=== PATIENT | male | born 2000 | race Caucasian/White ===

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

== ENCOUNTER 2024-09-17 03:07 | Emergency (ER) | payer SELFPAY ==
--- OUTSIDE RECORDS SUMMARY | 2024-09-17 03:11 | XMS REPORT | Continuity of Care Document ---
Author Name Unknown Address [address] [phone] [facility] Address [address] [phone] Care Team Providers Care Outreach Analyst Name Role Phone Tc Gil Primary Care Physician [phone] SANTIAGO THOMPSON Attending Clinician Unavailable Santiago Thompson MD Attending Clinician [phone] Problems Condition Name Condition Details Condition Category Status Onset Date Resolution Date Last Treatment Date Treating Clinician Comments Source Acute bronchioli tis due to respirator y syncytial virus (RSV) Acute bronchioli tis due to respirator y syncytial virus (RSV) Disease Active 08-17 00:00: 00 [facility] Allergies, Adverse Reactions, Alerts Allergy Name Allergy Type Status Severity Reaction(s) Onset Date Inactive Date Treating Clinician Comments Source NO KNOWN ALLERGIE S Drug Class Active [facility] Social History Social Habit Start Date Stop Date Quantity Comments Source Exposure to SARS-CoV-2 (event) Not sure [facility] Sex Assigned At 2000 00:00:00 2000 00:00:00 [facility] Smoking Status Start Date Stop Date Source Unknown if ever smoked [facility] Medications Ordered Medication Name Filled Medication Name Start Date Stop Date Current Medication? Ordering Clinician Indication Dosage Frequency Signature (SIG) Comments Components Source NaCl 0.9% (NS) bolus infusion 1,000 mL 2020-05 20:15: 00 04-10 20:16 :00 No 1000mL at 999 mL/hr, 1,000 mL, IV Infusion, ONCE, 1 dose, On Tue04/10/21 at 1415, MICHAEL [facility] Vital Signs Vital Name Observation Time Observation Value Comments S ource Systolic blood pressure 2021-04-10 19:07:00 140 mm[Hg] [facility] Diastolic blood pressure 2021-04-10 19:07:00 86 mm[Hg] [facility] Heart rate 2021-04-10 19:07:00 85 /min [facility] Body temperature 2021-04-10 19:07:00 36.56 Sujata [facility] Respiratory rate 2021-04-10 19:07:00 20 /min [facility] Body height 2021-04-10 19:07:00 172.7 cm [facility] Body weight 2021-04-10 19:07:00 58.968 kg [facility] BMI 2021-04-10 19:07:00 19.77 kg/m2 [facility] Oxygen saturation in Arterial blood by Pulse oximetry 2021-04-10 19:07:00 100 /min [facility] BP Systolic 2024-03-06 15:09:00 131 mm[Hg] Step hen Sukh Cortes BP Diastolic 2024-03-06 15:09:00 88 mm[Hg] Juni Cortes Weight Measured 2024-03-06 15:09:00 116.80 pounds Sam Cortes Height Measured 2024-03-06 15:09:00 68.00 inches Sam Cortes Body Temperature 2024-03-06 15:09:00 98.30 degrees Sam Cortes Heart Rate 2024-03-06 15:09:00 84.00 /min Lety en Sukh Cortes Respiratory Rate 2024-03-06 15:09:00 18.00 /min Sam Cortes Procedures Procedure Date / Time Performed Performing Clinicia n Source COMP. METABOLIC PANEL ([id number]) 2021-04-10 19:20:00 Santiago Thompson [facility] ETHANOL 2021-04-10 19:20:00 Santiago Thompson [facility] CBC WITH DIFF 2021-04-10 19:20:00 Santiago Thompson [facility] Encounters Start Date/Time End Date/Time Encounter Type Admission Type Attending [facility] Care Department Encounter ID Source 2024-03-15 17:30:06 2024-03-15 17:30:06 Outpatient [facility] [id number] Sam Cortes 2024-03-06 15:01:10 2024-03-06 15:01:10 Outpatient [facility] [id number] Sam Cortes 2024-03-06 00:00:00 2024-03-06 00:00:00 Outpatient Visit [facility] [id number] Sam Cortes 2021-04-10 13:09:00 2021-04-10 14:55:00 Emergency X SANTIAGO THOMPSON [facility] ERT [id number] [facility] 2021-04-10 13:09:00 2021-04-10 14:55:00 Emergency Santiago Thompson [facility] [id number] [facility] Results Test Description Test Time Test Comments Results Result Co mments Source HEPATITIS A [id number] 11:01:04* Test Item Value Reference Range Interpretation Comme nts HEPATITIS A IgM (test code = 2728) NON-REACTIVE NON-REACTIVE UNLESS OTHERW ISE INDICATED, ALL TESTING PERFORMED AT [facility] 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 [place] NUMBER [id number] [facility] [place]. [id number] HEPATITIS PANEL, [id number] 11:01:04* Test Item Value Reference Range Interpretation Comments HEPATITIS A TOTAL AB (test code = 2725) REACTIVE NON-REACTIVE A HEPATITIS B SURF AG (test code = 2739) NON-REACTIVE NON-REACTIVE HEP B CORE TOTAL AB (test code = 2729) NON-REACTIVE NON-REACTIVE HEPATITIS B SURFACE AB (test code = 2737) NON-REACTIVE NON-REACTIVE HEPATITIS C ANTIBODY (test code = 4675) NON-REACTIVE NON-REACTIVE INTERPRETATION HEPATITIS A: (test code = 2552) (NOTE) Hepatitis A sero logy consistent with past exposure or previousvaccination to hepatitis A virus. No evidence of current acutehepatitis A infection. INTERPRETATION HEPATITIS B: (test code = 05380) (NOTE) Hepatitis B sero logy shows no evidence of past exposure to orcurrent infection with hepatitis B virus. No evidence of hepatitis Bimmunization is identified. INTERPRETATION HEPATITIS C: (test code = 25610) (NOTE) Hepatitis C sero logy shows no evidence of exposure to hepatitisC virus at this time. It can take up to 12 months after exposure tothe hepatitis C virus for antibodies to become detectable in the blood in certain patients. HIV 1/2 4TH GEN, RFLX [id number] 11:01:04* Test Item Value Reference Range Interpretation Comme nts HIV 1/2 4TH GEN, RFLX CONF ( test code = 3514) NON-REACTIVE NON-REACTIVE RPR REFLEX TO T. PALLIDUM - [id number] 08:58:46* Test Item Value Reference Range Interpretation Comme nts RPR (test code = 11361) NON-REACTIVE NON-REACTIVE RPR TITER (test code = 3500) NOT INDIC. TITER NOT INDIC. [id number] 19:57:35* Test Item Value Reference Range Interpretation Comme nts ALCOHOL (test code = 6872135654) <10 mg/dL EDU (test code = EDU) <10 [id number] Toxic>100 Depression of SLAB INSTALLER>400 Fatalities Reported [facility]. METABOLIC PANEL ([id number])2021-04-10 19:45:17* Test Item Value Reference Range Interpretation Comme nts NA (test code = 9342837907) 135 mmol/L 135-145 K (test code = 3809783134) 3.9 mmol/L 3.5-5.0 CL (test code = 9555640386) 98 mmol/L 98-108 CO2 TOTAL (test code = 1325837446) 25 mmol/L 23-31 AGAP (test code = 9072162952) 2-16 BUN (test code = 0726235449) 19 mg/dL 7-23 GLUCOSE (test code = 5901950871) 77 mg/dL 70-110 CREATININE (test code = 9168872579) 1.09 mg/dL 0.60-1.25 TOTAL BILI (test code = 3541552367) 1.5 mg/dL 0.1-1.1 H CALCIUM (test code = 7608439684) 10.3 mg/dL 8.6-10.6 T PROTEIN (test code = 4301562526) 7.7 g/dL 6.3-8.2 ALBUMIN (test code = 3775728326) 5.1 g/dL 3.5-5.0 H ALK PHOS (test code = 4541077082) 77 U/L 34-122 ALTv (test code = 1742-6) 25 U/L 5-50 AST(SGOT) (test code = 5494777325) 46 U/L 13-40 H eGFR (test code = 6041799859) mL/min/1.73m2 EDU (test code = EDU) Association of Glomerular Filtration Rate (GFR) and Staging of Kidney Disease* + --+ --+ ------+| GFR (mL/min/1.73 m2) ?| With Kidney Damage ?| ?Without Kidney Damage+ --------+ --------+ +| ?>90 ?| ?Stage one ?| ? Normal ?+ ---+ ---+ -------+| ?60-89 ?| ?Stage two ?| ? Decreased GFR ? + --+ --+ ------+| ?30-59 ?| ?Stage three ?| ? Stage three ? + --+ --+ ------+| ?15-29 ?| ?Stage four ? | ? Stage four ?+ ---+ ---+ -------+| ?<15 (or dialysis) ? ?| ?Stage five ? | ? Stage five ?+ ---+ ---+ -------+ *Each stage assumes the associated GFR level has been in effect for at least three months. ?Stages 1 to 5, with or without kidney disease, indicate chronic kidney disease. Notes: Determination of stages one and two (with eGFR >59mL/min/1.73 m2) requires estimation of kidney damage for at least three months as defined by structural or functional abnormalities of the kidney, manifested by either:Pathological abnormalities or Markers of kidney damage (including abnormalities in the composition of the blood or urine or abnormalities in imaging tests). Lab Interpretation (test code = 37300-1) Abnormal [facility] WITH [id number] 19:31:56* Test Item Value Reference Range Interpretation Comme nts WBC (test code = 6690-2) See_Comment H [Automated message] The system which generated this result transmitted reference range: 4.20 - 10.70 10*3/?L. The reference range was not used to interpret this result as normal/abnormal. RBC (test code = 789-8) See_Comment [Automated message] The system which generated this result transmitted reference range: 4.26 - 5.52 10*6/?L. The reference range was not used to interpret this result as normal/abnormal. HGB (test code = 718-7) 15.3 g/dL 12.2-16.4 HCT (test code = 4544-3) 43.9 % 38.4-49.3 MCV (test code = 787-2) 87.3 fL 81.7-95.6 MCH (test code = 785-6) 30.4 pg 26.1-32.7 MCHC (test code = 786-4) 34.9 g/dL 31.2-35.0 RDW-SD (test code = 92402-9) 38.5 fL 38.5-51.6 RDW-CV (test code = 788-0) 12.0 % 12.1-15.4 L PLT (test code = 777-3) See_Comment [Automated message] The system which generated this result transmitted reference range: 150 - 328 10*3/?L. The reference range was not used to interpret this result as normal/abnormal. MPV (test code = 31915-9) 10.0 fL 9.8-13.0 NRBC/100 WBC (test code = 2859786889) See_Comment [Automated message] The system which generated this result transmitted reference range: 0.0 - 10.0 /100 WBCs. The reference range was not used to interpret this result as normal/abnormal. NRBC x10^3 (test code = 2370259379) <0.01 See_Comment [Automated message] The system which generated this result transmitted reference range: 10*3/?L. The reference range was not used to interpret this result as normal/abnormal. GRAN MAT (NEUT) % (test code = 770-8) 82.9 % IMM GRAN % (test code = 5674802552) 0.60 % LYMPH % (test code = 736-9) 9.9 % MONO % (test code = 5905-5) 6.2 % EOS % (test code = 713-8) 0.0 % BASO % (test code = 706-2) 0.4 % GRAN MAT x10^3(ANC) (test code = 4936546294) 10.24 10*3/uL 1.99-6.95 H IMM GRAN x10^3 (test code = 2141092847) 0.07 10*3/uL 0.00-0.06 H LYMPH x10^3 (test code = 731-0) 1.22 10*3/uL 1.09-3.23 MONO x10^3 (test code = 742-7) 0.77 10*3/uL 0.36-1.02 EOS x10^3 (test code = 711-2) <0.03 0.06-0.53 L BASO x10^3 (test code = 704-7) 0.05 10*3/uL 0.01-0.09 Lab Interpretation (test code = 55534-4) Abnormal [facility] Notes Date/Time Note Provider Source Sam Salas [facility]"
[2024-09-17] MEDS ORDERED: LEVALBUTEROL 0.63 MG/3 ML NEB ONE (03:41)
[2024-09-17] MEDS ORDERED: NA CHLORIDE 0.9% 1,000 ML ONE (03:42)
[2024-09-17] MEDS ORDERED: ONDANSETRON 4 MG/2 ML VIAL ONE (03:42)
[2024-09-17 04:08] LABS: Absolute Eosinophils 0.1 K/uL (0-0.5); Absolute Lymphocytes (CBC) 2.1 K/uL (0.7-4.9); Absolute Monocytes 0.5 K/uL (0.1-1.3); Basophils % 0.8 % (0-1.3); Hematocrit 39.9 % (39.6-49.0); Hemoglobin 14.4 g/dL (13.6-17.9); Lymphocytes % 36.3 % (15.3-44.8); MCH 30.9 pg (27.0-35.0); MCHC 36.1 g/dL (32.0-36.0); MCV 85.5 fL (80-100); MPV 8.6 fL (7.6-11.3); Monocytes % 9.2 % (3.3-12.3); Neutrophils % 52.7 % (41.7-73.7); Nucleated Red Blood Cells % 0.1 % (0-0); Platelets 211 thou/uL (152-406); RBC Red Blood Cell Count 4.66 M/uL (4.33-5.43); Red Cell Distribution Width 13.1 % (12.1-15.2)
[2024-09-17 04:21] LABS: Albumin 3.9 g/dL (3.4-5.0); Albumin/Globulin Ratio 1.1 (1.1-1.8); Anion Gap 8.8 mEq/L (5.0-15.0); Bilirubin Direct 0.2 mg/dL (0-0.2); Bilirubin Indirect, Calculated 0.4 mg/dL (0.2-0.8); Bilirubin Total 0.6 mg/dL (0.2-1.0); Globulin 3.5 g/dL (2.3-3.5); Potassium 3.8 mEq/L (3.5-5.1); Protein, Total 7.4 g/dL (6.4-8.2); Troponin High Sensitivity 12.5 pg/mL (<58.9)
--- NOTE | 2024-09-17 04:53 | EDPHYS ---
Physician Documentation [facility] Name: Carter Forbes Age: 24 yrs Sex: Male : 2000 Arrival Date: 09/17/2024 Time: 03:07 Bed 8 Private MD: ED Physician Deondre Novak HPI: 09/17 04:44 This 24 yrs old Male presents to ER via Ambulatory with complaints of Shortness Of rt Breath, Dizziness. 04:44 Patient presents to the ED with 2 weeks of an intermittent chest pain, shortness of rt breath, dizziness. Patient denies other acute complaints at this time, symptoms are moderate in severity, no other aggravating alleviating factors.. Historical: - Allergies: 03:32 No Known Allergies; br2 - Home Meds: 03:32 None [Active]; br2 - PSHx: 03:32 None; br2 - Immunization history:: Adult Immunizations up to date. - Infectious Disease History:: Denies. - Social history:: Smoking status: Reported history of juuling and/or vaping. Patient uses street drugs, marijuana, Patient/guardian denies using alcohol. - Family history:: not pertinent. ROS: 04:44 Constitutional: Negative for fever, chills, and weight loss, MS/Extremity: Negative for rt injury and deformity, 04:44 Cardiovascular: Positive for chest pain, Negative for edema, 04:44 Respiratory: Positive for shortness of breath, Negative for cough, 04:44 Abdomen/GI: Positive for nausea, Negative for abdominal pain, 04:44 Neuro: Positive for dizziness, Negative for loss of consciousness, Exam: 04:44 Constitutional: This is a well developed, well nourished patient who is awake, alert, rt and in no acute distress. Head/Face: Normocephalic, atraumatic. Chest/axilla: Normal chest wall appearance and motion. Nontender with no deformity. No lesions are appreciated. Cardiovascular: Regular rate and rhythm with a normal S1 and S2. No gallops, murmurs, or rubs. Normal PMI, no JVD. No pulse deficits. Respiratory: Lungs have equal breath sounds bilaterally, clear to auscultation and percussion. No rales, rhonchi or wheezes noted. No increased work of breathing, no retractions or nasal flaring. Abdomen/GI: Soft, non-tender, with normal bowel sounds. No distension or tympany. No guarding or rebound. No evidence of tenderness throughout. MS/ Extremity: Pulses equal, no cyanosis. Neurovascular intact. Full, normal range of motion. Neuro: Awake and alert, GCS 15, oriented to person, place, time, and situation. Cranial nerves II-XII grossly intact. Motor strength 5/5 in all extremities. Sensory grossly intact. Cerebellar exam normal. Normal gait. 04:44 ECG was reviewed by the Attending Physician. Vital Signs: 03:29 BP 143 / 103; Pulse 72; Resp 15; Temp 97.2; Pulse Ox 96% ; Weight 54.43 kg; Height 5 br2 ft. 6 in. ; Pain 4/10; 03:30 BP 136 / 102; Pulse 69; Resp 17; Pulse Ox 98% ; al5 04:00 BP 141 / 101; Pulse 64; Resp 20; Pulse Ox 98% ; al5 04:30 BP 130 / 76; Pulse 60; Resp 20; Pulse Ox 98% ; al5 05:00 BP 129 / 75; Pulse 66; Resp 18; Pulse Ox 98% ; al5 03:29 Body Mass Index 19.37 (54.43 kg, 167.64 cm) br2 03:29 Pain Scale: Adult br2 MDM: 03:29 Medical Screening Exam initiated rt 04:53 Differential diagnosis: Pneumonia, pneumothorax, dysrhythmia, anemia, electrolyte rt disturbance, nonspecific chest pain. Data reviewed: vital signs, nurses notes, lab test result(s), EKG, radiologic studies. I considered the following discharge prescriptions or medication management in the emergency department Medications were administered in the Emergency Department. See MAR. Independent interpretation of the following test(s) in the Emergency Department X-Ray: My interpretation is No consolidation, pneumothorax seen on interpretation of x-ray images. Test considered but Not performed: CT: Low suspicion for PE, PE RC negative, CT angiogram is not indicated. Counseling: I had a detailed discussion with the patient and/or guardian regarding the historical points, exam findings, and any diagnostic results supporting the discharge/admit diagnosis, lab results, radiology results, the need for outpatient follow up. 09/17 03:34 Order name: Basic Metabolic Panel; Complete Time: 04:29 rt 09/17 03:34 Order name: CBC with Diff; Complete Time: 04:29 rt 09/17 03:34 Order name: LFT's; Complete Time: 04:29 rt 09/17 03:34 Order name: NT PRO-BNP; Complete Time: 04:29 rt 09/17 03:34 Order name: Troponin HS; Complete Time: 04:29 rt 09/17 03:34 Order name: XRAY Chest (1 view) rt 09/17 03:34 Order name: EKG; Complete Time: 03:36 rt 09/17 03:34 Order name: Cardiac monitoring; Complete Time: 03:51 rt 09/17 03:34 Order name: EKG - Nurse/Tech; Complete Time: 03:51 rt 09/17 03:34 Order name: IV Saline Lock; Complete Time: 03:49 rt 09/17 03:34 Order name: Labs collected and sent; Complete Time: 03:49 rt 09/17 03:34 Order name: O2 Per Protocol; Complete Time: 03:39 rt 09/17 03:34 Order name: O2 Sat Monitoring; Complete Time: 03:39 rt EC:44 Rate is 51 beats/min. Rhythm is regular, Normal Sinus Rhythm with No ectopy. QRS [place] rt is Normal. W[place] interval is normal. QRS interval is normal. QT interval is normal. No Q waves. No ST changes noted. Interpreted by me. Administered Medications: 03:51 Drug: Levalbuterol Inhalation 0.63 mg Inhalation once Route: Inhalation; al5 05:12 Follow up: Response: No adverse reaction; Marked relief of symptoms al5 03:51 Drug: NS 0.9% IV 1000 ml IV at 1 bolus Per protocol; to be given as a bolus over 60 al5 minutes Route: IV; Rate: 1 bolus; Site: right forearm; 05:12 Follow up: Response: No adverse reaction; IV Status: Completed infusion; IV Intake: al5 1000ml 03:51 Drug: Ondansetron IVP 4 mg IVP once; over 2 minutes Route: IVP; Site: right forearm; al5 05:12 Follow up: Response: No adverse reaction al5 Disposition Summary: 09/17/24 04:53 Discharge Ordered Notes: Location: Home rt Problem: new rt Symptoms: have improved rt Condition: Stable rt Diagnosis - Dyspnea rt Followup: rt - With: Private Physician - When: 2 - 3 days - Reason: Discharge Instructions: - Discharge Summary Sheet rt - Shortness of Breath, Adult rt Forms: - Medication Reconciliation Form rt - Antibiotic Education rt - Prescription Opioid Use rt - Patient Portal Instructions rt - Leadership Thank You Letter rt Signatures: Dispatcher [employer] Deondre Lawrence MD MD rt Leatha Patel RN RN al5 Oksana Solomon RN RN br2
--- NOTE | 2024-09-17 04:53 | RAD REPORT ---
EXAM: XR Chest, 1 View CLINICAL HISTORY: The patient is 24 years old and is Male; DYSPNEA TECHNIQUE: Frontal view of the chest. COMPARISON: No relevant prior studies available. FINDINGS: Lungs: Unremarkable. No consolidation. Pleural space: Unremarkable. No pneumothorax. Heart: Unremarkable. Mediastinum: Unremarkable. Normal mediastinal contour. Bones/joints: No acute findings. IMPRESSION: No acute findings in the chest. Electronically signed by: Denver Doyle MD 09/17/2024 04:48 AM CDT 8 Transcribed Date/Time: 09/17/2024 4:52 AM
--- NOTE | 2024-09-17 04:53 | ER ---
Nurse's Notes [facility] Name: Carter Forbes Age: 24 yrs Sex: Male : 2000 Arrival Date: 09/17/2024 Time: 03:07 Bed 8 Private MD: Diagnosis: Dyspnea Presentation: 09/17 03:29 Chief complaint: Patient states: INTERMITTENT MID-STERNAL CP, SOB, DIZZY, NAUSEA, br2 CHILLS FOR THE LAST 2 WEEKS. Coronavirus screen: Client denies travel out of the [place] in the last 14 days. Ebola Screen: Patient denies exposure to infectious person. Initial Sepsis Screen: Does the patient meet any 2 criteria? No. Patient's initial sepsis screen is negative. Does the patient have a suspected source of infection? No. Patient's initial sepsis screen is negative. Risk Assessment: Do you want to hurt yourself or someone else? Patient reports no desire to harm self or others. Onset of symptoms was September 03, 2024. 03:29 Method Of Arrival: Ambulatory br2 03:29 Acuity: ALYSA 3 br2 Triage Assessment: 03:32 General: Appears in no apparent distress. comfortable, Behavior is calm, cooperative. br2 Pain: Complains of pain in anterior aspect of left upper chest and mid-sternal area Pain does not radiate. Pain currently is 4 out of 10 on a pain scale. Respiratory: Reports shortness of breath cough that is dry, Airway is patent Respiratory effort is even, unlabored, Respiratory pattern is regular, symmetrical, Onset: The symptoms/episode began/occurred 2 WEEKS AGO, the patient has mild shortness of breath. Historical: - Allergies: 03:32 No Known Allergies; br2 - Home Meds: 03:32 None [Active]; br2 - PSHx: 03:32 None; br2 - Immunization history:: Adult Immunizations up to date. - Infectious Disease History:: Denies. - Social history:: Smoking status: Reported history of juuling and/or vaping. Patient uses street drugs, marijuana, Patient/guardian denies using alcohol. - Family history:: not pertinent. Screenin:49 [facility] ED Fall Risk Assessment (Adult) History of falling in the last 3 months, al5 including since admission No falls in past 3 months (0 pts) Confusion or Disorientation No (0 pts) Intoxicated or Sedated No (0 pts) Impaired Gait No (0 pts) Mobility Assist Device Used No (0 pt) Altered Elimination No (0 pt) Score/Fall Risk Level 0 - 2 = Low Risk Oriented to surroundings, Maintained a safe environment, Hourly rounding (assess needs \T\ fall precautionary measures) done. Abuse screen: Denies threats or abuse. Denies injuries from another. Nutritional screening: No deficits noted. Tuberculosis screening: No symptoms or risk factors identified. Assessment: 03:50 General: Appears in no apparent distress. comfortable, Behavior is calm, cooperative. al5 Pain: Complains of pain in mid-sternal area Pain radiates to anterior aspect of left upper chest. Neuro: Level of Consciousness is awake, alert, obeys commands, Oriented to person, place, time, situation. Cardiovascular: Capillary refill < 3 seconds Patient's skin is warm and dry. Rhythm is sinus rhythm. Respiratory: Airway is patent Respiratory effort is even, unlabored, Respiratory pattern is regular, symmetrical. GI: No signs and/or symptoms were reported involving the gastrointestinal system. : No signs and/or symptoms were reported regarding the genitourinary system. EENT: No signs and/or symptoms were reported regarding the EENT system. Derm: Skin is intact, is healthy with good turgor, Skin is pink, warm \T\ dry. normal. Musculoskeletal: No signs and/or symptoms reported regarding the musculoskeletal system. 05:11 Reassessment: Patient appears in no apparent distress at this time. Patient and/or al5 family updated on plan of care and expected duration. Pain level reassessed. Patient is alert, oriented x 3, equal unlabored respirations, skin warm/dry/pink. Patient states feeling better. Patient states symptoms have improved. Vital Signs: 03:29 BP 143 / 103; Pulse 72; Resp 15; Temp 97.2; Pulse Ox 96% ; Weight 54.43 kg; Height 5 br2 ft. 6 in. ; Pain 4/10; 03:30 BP 136 / 102; Pulse 69; Resp 17; Pulse Ox 98% ; al5 04:00 BP 141 / 101; Pulse 64; Resp 20; Pulse Ox 98% ; al5 04:30 BP 130 / 76; Pulse 60; Resp 20; Pulse Ox 98% ; al5 05:00 BP 129 / 75; Pulse 66; Resp 18; Pulse Ox 98% ; al5 03:29 Body Mass Index 19.37 (54.43 kg, 167.64 cm) br2 03:29 Pain Scale: Adult br2 ED Course: 03:10 Patient arrived in ED. mr 03:27 Deondre Novak MD is Attending Physician. rt 03:31 Helena Monet, RN is Primary Nurse. hm5 03:32 Triage completed. br2 03:32 Arm band placed on right wrist. br2 03:47 Inserted saline lock: 20 gauge in right forearm, using aseptic technique. Blood vc1 collected. Flushed with 10 mL NS. 03:50 Patient has correct armband on for positive identification. Bed in low position. Call al5 light in reach. Side rails up X 1. Provided Education on: plan of care. 03:50 No provider procedures requiring assistance completed. al5 04:18 XRAY Chest (1 view) In Process Unspecified. EDMS 05:11 IV discontinued, intact, bleeding controlled, No redness/swelling at site. Pressure al5 dressing applied. Administered Medications: 03:51 Drug: Levalbuterol Inhalation 0.63 mg Inhalation once Route: Inhalation; al5 05:12 Follow up: Response: No adverse reaction; Marked relief of symptoms al5 03:51 Drug: NS 0.9% IV 1000 ml IV at 1 bolus Per protocol; to be given as a bolus over 60 al5 minutes Route: IV; Rate: 1 bolus; Site: right forearm; 05:12 Follow up: Response: No adverse reaction; IV Status: Completed infusion; IV Intake: al5 1000ml 03:51 Drug: Ondansetron IVP 4 mg IVP once; over 2 minutes Route: IVP; Site: right forearm; al5 05:12 Follow up: Response: No adverse reaction al5 Medication: 03:50 VIS not applicable for this client. al5 Intake: 05:12 IV: 1000ml; Total: 1000ml. al5 Outcome: 04:53 Discharge ordered by . rt 05:12 Discharged to home ambulatory, al5 05:12 Condition: good 05:12 Discharge instructions given to patient, Instructed on discharge instructions, follow up and referral plans. Demonstrated understanding of instructions, follow-up care, 05:17 Patient left the ED. al5 Signatures: Dispatcher [employer] EDMS Hiwot Noonan, Reg Reg mr Calcote, Sherin, RN RN vc1 Deondre Novak MD MD rt Leatha Patel, RN RN al5 Oksana Solomon, RN RN br2 Helena Monet, RN RN hm5
[2024-09-17 05:33] VITALS: BP 145/105; TEMP 98.8; O2SAT 100
--- NOTE | 2024-09-17 16:43 | EKG ---
Test Date: 2024-09-17 Test Time: 03:55:36 Private Banker: RUDDY MEASUREMENT RESULTS: Intervals: Rate: 51 [place]: 116 QRSD: 100 QT: 418 QTc: 385 [place]: P: 34 [place]: 116 QRS: 85 T: 64 INTERPRETIVE STATEMENTS: Sinus bradycardia Incomplete right bundle branch block Borderline ECG No previous ECG available for comparison Electronically Signed On 09-17-24 16:42:49 CDT by Car Shea
== END 2024-09-17 05:17 | disposition home or self-care (01) ==
LOC: ER 03:07
DX: R06.00 Dyspnea, unspecified (principal); R07.9 Chest pain, unspecified
CPT/HCPCS: 36415; 71045; 80048; 80076; 83880; 84484; 85025; 93005; 96361; 96374; 99285; J2405; J7030; J7614